=== PATIENT | female | born 1955 | race Caucasian/White ===

== ENCOUNTER 2020-12-26 13:06 | Emergency (ER) | payer MEDICARE, OTHER, SELFPAY ==
[2020-12-26] VITALS (11 sets, daily range): BP systolic 104–135; BP diastolic 52–73; PULSE 68–79; RESP 14–24; TEMP 36.8; O2SAT 94–98; BMI 31.9
--- NOTE | 2020-12-26 13:48 | DI.RAD.S_ITS ---
PROCEDURE: XR FOREARM RT 2V INDICATIONS: trauma TECHNIQUE: 2 views of the forearm were acquired. COMPARISON: [facility], CR, XR CHEST 1V, 12/26/2020, 13:47. [facility], CR, XR PELVIS 1-2V, 12/26/2020, 13:47. FINDINGS: Bones: No fractures or dislocations. No suspicious bony lesions. Age-appropriate bony degenerative changes are seen. Soft tissues: No suspicious soft tissue calcifications or masses. IMPRESSION: No displaced fractures can be seen. Dictated by: Km Chin M.D. on 12/26/2020 at 13:25 Approved by: Km Chin M.D. on 12/26/2020 at 13:26
--- NOTE | 2020-12-26 13:48 | DI.RAD.S_ITS ---
PROCEDURE: XR LUMBAR SPINE 2-3V INDICATIONS: trauma TECHNIQUE: 2 views of the lumbar spine were acquired. COMPARISON: [facility], CT, CT HEAD/BRAIN WO CON, 12/26/2020, 13:53. [facility], CT, CT CERVICAL SPINE WO CON, 12/26/2020, 13:53. [facility], CR, XR CHEST 1V, 12/26/2020, 13:47. [facility], CR, XR FOREARM RT 2V, 12/26/2020, 13:47. [facility], CR, XR PELVIS 1-2V, 12/26/2020, 13:47. FINDINGS: Bones: No displaced fractures are seen. 5 nonrib-bearing, lumbar type vertebral bodies are seen. Mild levoconvex scoliotic curvature is noted. Degenerative changes are seen throughout, with moderate to severe disc space narrowing at the L1-L2 level, with moderate disc space narrowing at L4-L5 and L5-S1. Macrocytic partially bridging anterior osteophytes are seen at L1-L2 and L2-L3. Degenerative changes are also seen involving the sacroiliac joints. Soft tissues: Overlying bowel gas pattern is normal. No suspicious soft tissue calcifications. IMPRESSION: No displaced fractures can be seen by plain film. If there is point tenderness (or other clinical suspicion for a fracture not seen on these images) then a dedicated CT could be considered for further evaluation, if clinically appropriate. Levoconvex scoliotic curvature and underlying degenerative changes can be seen. Dictated by: Km Chin M.D. on 12/26/2020 at 14:09 Approved by: Km Chin M.D. on 12/26/2020 at 14:11
--- NOTE | 2020-12-26 13:49 | DI.CT.S_ITS ---
PROCEDURE: CT CERVICAL SPINE WO CON INDICATIONS: Trauma TECHNIQUE: Noncontrast 3 mm thick sections acquired from the skull base to the T4 level. Sagittal and coronal reformats were then constructed. For radiation dose reduction, the following was used: automated exposure control, adjustment of mA and/or kV according to patient size. COMPARISON: [facility], CT, CT HEAD/BRAIN WO CON, 12/26/2020, 13:53. [facility], CR, XR FOREARM RT 2V, 12/26/2020, 13:47. [facility], CR, XR CHEST 1V, 12/26/2020, 13:47. [facility], CR, XR PELVIS 1-2V, 12/26/2020, 13:47. FINDINGS: Image quality: This examination is somewhat limited by quantum mottle artifact. Bones: No fractures or dislocations. Visualized superior ribs are intact. At the C5-C6 level, there is moderate disc space narrowing seen, with associated endplate irregularity and sclerosis. Milder degenerative changes are seen elsewhere. Soft tissues: Prevertebral soft tissues are normal in thickness. No paravertebral hematomas. No apical pneumothoraces. IMPRESSION: No acute fractures are seen. Focal C5-C6 degenerative change. Dictated by: Km Chin M.D. on 12/26/2020 at 13:21 Approved by: Km Chin M.D. on 12/26/2020 at 13:24
--- NOTE | 2020-12-26 13:49 | DI.RAD.S_ITS ---
PROCEDURE: XR CHEST 1V INDICATIONS: trauma TECHNIQUE: One view of the chest was acquired. COMPARISON: [facility], CR, XR PELVIS 1-2V, 12/26/2020, 13:47. FINDINGS: Surgical changes and devices: None. Lungs and pleura: On this supine examination, no large pneumothorax or large pleural effusions are seen. No focal areas of lung consolidation are seen. Low lung volumes are noted. This causes a crowded appearance to the lung markings and limits evaluation. Mediastinum: Mediastinal contours appear normal. Heart size is normal. Bones and chest wall: No suspicious bony lesions. No displaced fractures can be seen. Mild dextroconvex scoliotic curvature is seen. Overlying soft tissues appear unremarkable. IMPRESSION: Limited chest study, without an acute abnormality seen by plain film. Dictated by: Km Chin M.D. on 12/26/2020 at 13:07 Approved by: Km Chin M.D. on 12/26/2020 at 13:10
--- NOTE | 2020-12-26 13:49 | DI.CT.S_ITS ---
PROCEDURE: CT HEAD/BRAIN WO CON INDICATIONS: Trauma TECHNIQUE: Noncontrast 4.5 mm thick angled axial sections acquired from the foramen magnum to the vertex, with coronal and sagittal reformats. For radiation dose reduction, the following was used: automated exposure control, adjustment of mA and/or kV according to patient size. COMPARISON: [facility], CR, XR FOREARM RT 2V, 12/26/2020, 13:47. [facility], CT, CT CERVICAL SPINE WO CON, 12/26/2020, 13:53. [facility], CR, XR CHEST 1V, 12/26/2020, 13:47. [facility], CR, XR PELVIS 1-2V, 12/26/2020, 13:47. FINDINGS: Image quality: Mild streak artifact can be seen through the skull base. CSF spaces: Basal cisterns are patent. No extra-axial fluid collections. The ventricles are symmetric in size and shape. Brain: No intracranial bleeds or masses. There is cerebral volume loss for age, with resultant ventricular and sulcal prominence. There are periventricular and deep white matter chronic small vessel ischemic changes. There is intracranial internal carotid artery atherosclerosis. Skull and face: Calvarium and visualized facial bones appear intact, without suspicious lesions. Sinuses: There is an air-fluid level seen within the right maxillary sinus. The fluid within the right maxillary sinus measures water density and not hemorrhage. The paranasal sinuses otherwise appear clear. No abnormal fluid is seen within the mastoid air cells. IMPRESSION: No acute intracranial hemorrhage is seen. No acute intracranial process is seen. A simple air-fluid level can be seen within the right maxillary sinus (not hemorrhage). Please correlate with underlying history and sinus disease. Dictated by: Km Chin M.D. on 12/26/2020 at 13:18 Approved by: Km Chin M.D. on 12/26/2020 at 13:21
--- NOTE | 2020-12-26 13:49 | DI.RAD.S_ITS ---
PROCEDURE: XR PELVIS 1-2V INDICATIONS: trauma TECHNIQUE: 1 view(s) of the pelvis acquired. COMPARISON: [facility], CR, XR CHEST 1V, 12/26/2020, 13:47. FINDINGS: Bones: No fractures or dislocations. No suspicious bony lesions. Degenerative changes are seen, including involving the visualized lower lumbar spine. Soft tissues: Visualized bowel gas pattern is normal. No suspicious soft tissue calcifications. IMPRESSION: On this single view study, no livier fractures or dislocations are detected. Dictated by: Km Chin M.D. on 12/26/2020 at 13:11 Approved by: Km Chin M.D. on 12/26/2020 at 13:11
[2020-12-26 14:11] LABS: Add Manual Diff / Slide Review NO; Basophils Absolute Auto 100 /uL (0-100); Basophils Percent Auto 0.8 % (0-2); Eosinophils Absolute Auto 300 /uL (0-450); Eosinophils Percent Auto 3.3 % (2-4); Hematocrit 41.1 % (36-46); Hemoglobin 13.4 g/dL (12.0-16.0); Lymphocytes Absolute Auto 1300 /uL (1100-4500); Lymphocytes Percent Auto 16.4 % (25-40); Mean Corpuscular HGB Conc 32.6 % (30-36); Mean Corpuscular Hemoglobin 29.1 PG (26-34); Mean Corpuscular Volume 89.3 fL (80-100); Monocytes Absolute Auto 600 /uL (0-900); Monocytes Percent Auto 7.1 % (3-14); Neutrophils Absolute Auto 5600 /uL (1500-7000); Neutrophils Percent Auto 72.4 % (50-75); Platelet Count 280 X10^3/uL (150-400); White Blood Cell Count 7.7 X10^3/uL (4.5-11.0)
[2020-12-26 14:18] LABS: Alanine Aminotransferase 20 IU/L (<35); Albumin Globulin Ratio 1.4 (1.0-2.8); Alkaline Phosphatase 64 U/L (38-126); Aspartate Aminotransferase 31 IU/L (14-36); BUN Creatinine Ratio 23.1 (6-22); Bilirubin Total 0.4 mg/dL (0.2-1.3); Blood Urea Nitrogen 18 mg/dL (7-17); Calcium 8.7 mg/dL (8.4-10.2); Carbon Dioxide 24 mmol/L (22-32); Chloride 108 mmol/L (98-107); Creatine Kinase 68 U/L (30-135); Estimated Glomerular Filt Rate > 60.0 mL/min (>60); Globulin 2.8 g/dL (1.7-4.1); Glucose 142 mg/dL (80-110); HEMOLYSIS 15 (0-50); Lipase 195 U/L (23-300); Sodium 140 mmol/L (137-145); Total Protein 6.8 g/dL (6.3-8.2)
[2020-12-26] MEDS: SODIUM CHLORIDE 0.9% 1,000 ML 150 ML IV (14:22)
[2020-12-26] MEDS: HYDROMORPHONE 1 MG INJ 0.5 MG IV (14:23)
[2020-12-26] MEDS: ONDANSETRON 4 MG/2 ML INJ IV (14:23)
[2020-12-26 14:30] LABS: Troponin I < 0.012 ng/mL (0.01-0.034)
--- NOTE | 2020-12-26 14:35 | ED.TRAUMA ---
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 She was helping a friend of hers move into a new home stumbled over the top step and landed 15 stairs down on the landing. There was no loss of consciousness. She complains of headache neck strain low back strain and right forearm pain. She is able to give a complete coherent history speaking in full sentences with no obvious trauma. Related Data Previous Rx's Medication Instructions Recorded cyclobenzaprine 10 mg tablet 10 mg PO TID PRN #14 tab 12/26/20 oxycodone-acetaminophen 5 mg-325 1 tab PO Q6H PRN #15 tab 12/26/20 mg tablet Allergies Allergy/AdvReac Type Severity Reaction Status Date / Time amoxicillin [From Augmentin] Allergy Verified 12/26/20 13:14 clavulanic acid Allergy Verified 12/26/20 13:14 [From Augmentin] Sulfa (Sulfonamide Allergy Verified 12/26/20 13:14 Antibiotics) Review of Systems Review of Systems Narrative: Pertinent positive and negative findings as per HPI Remainder of review of systems is otherwise unremarkable for Constitutional: Fevers, chills, weakness ENT: No sore throat, neck pain, ear pain CV: Chest pain, palpitations, Respiratory: Cough, wheeze, dyspnea GI: Nausea, vomiting, diarrhea, : Dysuria, hematuria, Patient History Medical History (Updated 12/26/20 @ 15:58 by Fariba Garcia MD) Kaity-Danlos syndrome Surgical History (Updated 12/26/20 @ 15:41 by Fariba Garcia MD) Status post right knee replacement Social History Smoking Status: Unknown if ever smoked Smoking Status: Unknown if ever smoked alcohol intake frequency: holidays/special occasions only Substance Use Type: does not use Exam Narrative Exam Narrative: General: Healthy appearing, C-collar in place mild pain but. Able to give a complete and coherent history. Well-nourished well-developed HEENT: Moist mucous membranes, normal sclera with reactive pupils, no obvious head trauma. Neck: No JVD, supple, mild paraspinous muscular tenderness. No subcutaneous air appreciated Respiratory: Lungs are clear to auscultation, no wheezing no rales no rhonchi. Full and symmetrical air movement, no specific tenderness with rib cage manipulation and no subcutaneous air appreciated Cardiac: Regular rate and rhythm no murmurs no bruits Abdomen: Soft, nontender, no bruising or contusions, good bowel tones, no flank pain Spine: No point tenderness to palpation along the thoracic or lumbar spine. She does complain of tightening and pain along the lumbar spine Skin: Warm and dry, no rashes Neurologic: Grossly neurologically intact with no obvious asymmetries or abnormalities Extremities: well perfused, contusion to the outer edge of the right forearm without abrasion or obvious bony deformity Psych: Cooperative, appropriate insight and affect Initial Vital Signs Initial Vital Signs: Vital Signs Temperature 98.2 F 12/26/20 13:10 Pulse Rate 74 12/26/20 13:10 Respiratory Rate 14 12/26/20 13:10 Blood Pressure 124/58 L 12/26/20 13:10 Pulse Oximetry 96 12/26/20 13:10 Course Orders Ordered: ED Orders 12/26/20 13:13 Complete Blood Count AUTO DIFF Stat Comprehensive Metabolic Panel Stat Lipase Stat Troponin & CK Cardiac Panel Stat Type and Screen Stat 12/26/20 13:48 XR forearm RT 2V Stat XR lumbar spine 2-3V Stat EKG-12 Lead Stat 12/26/20 13:49 CT cervical spine wo con Stat CT head/brain wo con Stat XR chest 1V Stat XR pelvis 1-2V Stat Sodium Chloride (Normal Saline 0.9%) 1,000 mls @ 150 mls/hr IV CONT WENDY Last Admin: 12/26/20 14:22 Dose: 150 mls/hr Documented by: CARLOS EDUARDO Discontinued Medications Cyclobenzaprine HCl (Cyclobenzaprine 10 Mg Tablet) 10 mg PO NOW ONE Stop: 12/26/20 15:07 Last Admin: 12/26/20 15:25 Dose: 10 mg Documented by: HOMAR Hydromorphone HCl (Hydromorphone 1 Mg Inj) 0.5 mg IV NOW ONE Stop: 12/26/20 13:49 Last Admin: 12/26/20 14:23 Dose: 0.5 mg Documented by: CARLOS EDUARDO Ketorolac Tromethamine (Ketorolac 30 Mg/Ml Vial) 15 mg IV NOW ONE Stop: 12/26/20 15:07 Last Admin: 12/26/20 15:25 Dose: 15 mg Documented by: HOMAR Ondansetron HCl (Ondansetron 4 Mg/2 Ml Inj) 4 mg IV NOW ONE Stop: 12/26/20 13:49 Last Admin: 12/26/20 14:23 Dose: 4 mg Documented by: CARLOS EDUARDO Vital Signs Vital signs: Vital Signs - 8 hr 12/26/20 13:10 12/26/20 13:11 12/26/20 13:30 Temperature 98.2 F Pulse Rate 74 69 69 Respiratory Rate 14 Blood Pressure 124/58 L 130/64 Pulse Oximetry 96 96 96 12/26/20 14:16 12/26/20 14:30 Temperature Pulse Rate 74 70 Respiratory Rate Blood Pressure 135/73 134/72 Pulse Oximetry 96 97 MDM - Trauma Lab Data Result diagrams: 12/26/20 13:13 12/26/20 13:13 Labs: Lab Results 12/26/20 12/26/20 12/26/20 Range/Units 13:13 13:13 13:13 WBC 7.7 (4.5-11.0) X10^3/uL RBC 4.60 (4.0-5.2) X10^6/uL Hgb 13.4 (12.0-16.0) g/dL Hct 41.1 (36-46) % MCV 89.3 (80-100) fL MCH 29.1 (26-34) PG MCHC 32.6 (30-36) % RDW 13.0 (11.6-14.8) % Plt Count 280 (150-400) X10^3/uL Neut % (Auto) 72.4 (50-75) % Lymph % (Auto) 16.4 L (25-40) % [place] % (Auto) 7.1 (3-14) % Eos % (Auto) 3.3 (2-4) % Baso % (Auto) 0.8 (0-2) % Neut # (Auto) 5600 (7601-7274) /uL Lymph # (Auto) 1300 (1212-1105) /uL [place] # (Auto) 600 (0-900) /uL Eos # (Auto) 300 (0-450) /uL Baso # (Auto) 100 (0-100) /uL Sodium 140 (137-145) mmol/L Potassium 4.0 (3.4-5.1) mmol/L Chloride 108 H (98-107) mmol/L Carbon Dioxide 24 (22-32) mmol/L BUN 18 H (7-17) mg/dL Creatinine 0.78 (0.52-1.04) mg/dL Estimated GFR > 60.0 (>60) mL/min BUN/Creatinine Ratio 23.1 H (6-22) Glucose 142 H (80-110) mg/dL Calcium 8.7 (8.4-10.2) mg/dL Total Bilirubin 0.4 (0.2-1.3) mg/dL AST 31 (14-36) IU/L ALT 20 (<35) IU/L Alkaline Phosphatase 64 (38-126) U/L Total Creatine Kinase 68 (30-135) U/L CK-MB (CK-2) TNP CK-MB (CK-2) Rel Index TNP Troponin I < 0.012 (0.01-0.034) ng/mL Total Protein 6.8 (6.3-8.2) g/dL Albumin 4.0 (3.5-5.0) g/dL Globulin 2.8 (1.7-4.1) g/dL Albumin/Globulin Ratio 1.4 (1.0-2.8) Lipase 195 (23-300) U/L Blood Type O Positive Antibody Screen Negative Urine Dip Bedside Urine Glucose 1000 mg/dl Bedside Urine Bilirubin - Negative Bedside Urine Ketone - Negative Urine Specific [place] 1.015 Bedside Urine Occult Blood +/- Bedside Urine pH 5.5 Bedside Urine Protein - Negative Bedside Urine Urobilinogen - Negative Bedside Urine Nitrite - Negative Bedside Urine Leukocytes + [address] - cervical spine: Radiologist's Impression: FINDINGS: Image quality: This examination is somewhat limited by quantum mottle artifact. Bones: No fractures or dislocations. Visualized superior ribs are intact. At the C5-C6 level, there is moderate disc space narrowing seen, with associated endplate irregularity and sclerosis. Milder degenerative changes are seen elsewhere. Soft tissues: Prevertebral soft tissues are normal in thickness. No paravertebral hematomas. No apical pneumothoraces. IMPRESSION: No acute fractures are seen. Focal C5-C6 degenerative change. Dictated by: Km Chin M.D. on 12/26/2020 at 13:21 CT scan - head: Radiologist's Impression: FINDINGS: Image quality: Mild streak artifact can be seen through the skull base. CSF spaces: Basal cisterns are patent. No extra-axial fluid collections. The ventricles are symmetric in size and shape. Brain: No intracranial bleeds or masses. There is cerebral volume loss for age, with resultant ventricular and sulcal prominence. There are periventricular and deep white matter chronic small vessel ischemic changes. There is intracranial internal carotid artery atherosclerosis. Skull and face: Calvarium and visualized facial bones appear intact, without suspicious lesions. Sinuses: There is an air-fluid level seen within the right maxillary sinus. The fluid within the right maxillary sinus measures water density and not hemorrhage. The paranasal sinuses otherwise appear clear. No abnormal fluid is seen within the mastoid air cells. IMPRESSION: No acute intracranial hemorrhage is seen. No acute intracranial process is seen. A simple air-fluid level can be seen within the right maxillary sinus (not hemorrhage). Please correlate with underlying history and sinus disease. Dictated by: Km Chin M.D. on 12/26/2020 at 13:18 xr pelvis: Radiologist's Impression: FINDINGS: Bones: No fractures or dislocations. No suspicious bony lesions. Degenerative changes are seen, including involving the visualized lower lumbar spine. Soft tissues: Visualized bowel gas pattern is normal. No suspicious soft tissue calcifications. IMPRESSION: On this single view study, no livier fractures or dislocations are detected. Dictated by: Km Chin M.D. on 12/26/2020 at 13:11 Chest x-ray: Radiologist's Impression: FINDINGS: Surgical changes and devices: None. Lungs and pleura: On this supine examination, no large pneumothorax or large pleural effusions are seen. No focal areas of lung consolidation are seen. Low lung volumes are noted. This causes a crowded appearance to the lung markings and limits evaluation. Mediastinum: Mediastinal contours appear normal. Heart size is normal. Bones and chest wall: No suspicious bony lesions. No displaced fractures can be seen. Mild dextroconvex scoliotic curvature is seen. Overlying soft tissues appear unremarkable. IMPRESSION: Limited chest study, without an acute abnormality seen by plain film. Dictated by: Km Chin M.D. on 12/26/2020 at 13:07 XR forarm left: Radiologist's Impression: FINDINGS: Bones: No fractures or dislocations. No suspicious bony lesions. Age-appropriate bony degenerative changes are seen. Soft tissues: No suspicious soft tissue calcifications or masses. IMPRESSION: No displaced fractures can be seen. Dictated by: Km Chin M.D. on 12/26/2020 at 13:25 ECG Data Interpretation: Sinus rhythm at a rate of 73 Normal axis, normal interval No acute ischemic changes MDM Narrative Medical decision making narrative: 65-year-old woman with a mechanical fall down 15 stairs today. Imaging studies are unremarkable. Her headache has improved with Toradol. Muscle spasms in her low back are improving with Flexeril. She has no evidence of significant intracranial hemorrhage or axial skeleton injury. There are no rib fractures and the injury to her right forearm is not a fracture. There is no evidence internal hemorrhage and she is otherwise remarkably on skate after her 15 stair tumble She will be discharged home with of brief course of Percocet for severe pain and Flexeril for muscle spasm if needed. She is safe for home discharge Emergency medicine: Utilization is CT for minor blunt head trauma adult. Head CT was ordered by and emergency care physician for trauma because of a fall down 15 stairs in a patient older than 65 years. Discharge Plan Departure Patient Disposition: Home Clinical Impression: Concussion Qualifiers: Encounter type: initial encounter Loss of consciousness presence/duration: without LOC Qualified Code(s): S06.0X0A - Concussion without loss of consciousness, initial encounter Contusion of forearm, right Qualifiers: Encounter type: initial encounter Qualified Code(s): S50.11XA - Contusion of right forearm, initial encounter Neck strain Qualifiers: Encounter type: initial encounter Qualified Code(s): S16.1XXA - Strain of muscle, fascia and tendon at neck level, initial encounter Lumbar strain Qualifiers: Encounter type: initial encounter Qualified Code(s): S39.012A - Strain of muscle, fascia and tendon of lower back, initial encounter Fall down stairs Qualifiers: Encounter type: initial encounter Qualified Code(s): W10.8XXA - Fall (on) (from) other stairs and steps, initial encounter Instructions: DI for Concussion, DI for Contusion Activity Restrictions/Additional Instructions: Thank you for coming in today I am so sorry that you ended up falling down the stairs today. I am quite relieved that you do not seem to have severe injuries. By definition you do have a concussion however the CT scan of your head does not show any skull fractures or bleeding inside your skull. You have no broken bones and no internal injuries. You do have a number of bumps, bruises and strains and you are going to hurt more over the next 24-48 hours Using 400 mg of ibuprofen (2 milp-[id number] pills) and 1 Tylenol every 6 hours can be very helpful in controlling pain. For severe pain using 400 mg of ibuprofen and 1 Percocet can be helpful. If you are more troubled by muscle spasm you can use Flexeril as needed. If you find worsening areas or new areas of concern please feel free to return to the emergency room for further evaluation I hope you heal quickly Prescriptions: New oxycodone-acetaminophen 5-325 mg tablet 1 tab PO Q6H PRN (Reason: pain) Qty: 15 RF: 0 cyclobenzaprine 10 mg tablet 10 mg PO TID PRN (Reason: muscle spasm) Qty: 14 RF: 0
[2020-12-26] MEDS: KETOROLAC 30 MG/ML VIAL 15 MG IV (15:25)
[2020-12-26] MEDS: CYCLOBENZAPRINE 10 MG TABLET PO (15:25)
--- NOTE | 2020-12-31 14:08 | PC.NURSE ---
late entry- per RN IV fluids DC'd when IV was DC'd at 1630
--- NOTE | 2021-01-03 07:58 | PC.NURSE ---
Late entry: NS 150 mL/hr infusion stoped at 1640 hrs.
== END 2020-12-26 16:56 | disposition home or self-care (01) ==
PROVIDERS: Emergency Provider Emergency Medicine
DX: S06.0X0A Concussion without loss of consciousness, initial encounter (principal); S50.11XA Contusion of right forearm, initial encounter; S16.1XXA Strain of muscle, fascia and tendon at neck level, initial encounter; S39.012A Strain of muscle, fascia and tendon of lower back, initial encounter; W10.8XXA Fall (on) (from) other stairs and steps, initial encounter; R51.9 Headache, unspecified
CPT/HCPCS: 70450; 71045; 72100; 72125; 72170; 73090; 80053; 81003; 82550; 83690; 84484; 85025; 86850; 86900; 86901; 93005; 93010; 96361; 96374; 96375; 99284; J1170; J1885; J2405